=== PATIENT | female | born 2000 | race Two or more races ===

== ENCOUNTER 2022-11-30 20:23 | Emergency (ER) | payer OTHER ==
[2022-11-30 20:42] VITALS: BP 133/85
[2022-11-30] MEDS ORDERED: ACETAMINOPHEN 325 MG TABLET PO STA (20:46)
--- NOTE | 2022-11-30 20:48 | ED Physician Documentation ---
PD HPI ABD PAIN - Stated complaint Stated Complaint: FEMALE - Chief complaint Chief Complaint: Abd Pain - History obtained from History obtained from: Patient, Family () - Additional information Additional information: 19-year-old woman presents with positive test as well as negative test, both performed yesterday. also with left-sided cramping 3/10 pain radiating to the front intermittent over the past 2 days with associated nausea and increased urinary frequency. Last menstrual period 10/29/2022. denies Vaginal discharge, bleeding, dysuria, hematuria.No past surgical history. Review of Systems Constitutional: denies: Fever GI: reports: Abdominal Pain, Nausea. denies: Vomiting, Constipation, Diarrhea : reports: Frequency. denies: Dysuria PD PAST MEDICAL HISTORY - Allergies Allergies/Adverse Reactions: Allergies Allergy/AdvReac Type Severity Reaction Status Date / Time No Known Drug Allergies Allergy Verified 11/30/22 20:41 PD ED PE NORMAL - Vitals Vital signs reviewed: Yes - General General: Alert and oriented X 3, No acute distress, Well developed/nourished - HEENT HEENT: Atraumatic, PERRL, EOMI - Neck Neck: Supple, no meningeal sign - Cardiac Cardiac: RRR - Respiratory Respiratory: No respiratory distress, Clear bilaterally - Abdomen Abdomen: Non tender, Non distended - Back Back: No CVA TTP Results - Vitals Vitals: Vital Signs - 24 hr 11/30/22 20:35 Temperature 36.3 C L Heart Rate 77 Respiratory 15 Rate Blood Pressure 133/85 H O2 Saturation 100 Oxygen O2 Source Room air - Labs Labs: Laboratory Tests 11/30/22 11/30/22 20:30 20:30 Urine Color YELLOW Urine Clarity CLEAR Urine pH 7.0 Ur Specific [place] <=1.005 Urine Protein NEGATIVE Urine Glucose (UA) NEGATIVE Urine Ketones NEGATIVE Urine Occult Blood NEGATIVE Urine Nitrite NEGATIVE Urine Bilirubin NEGATIVE Urine Urobilinogen 0.2 (NORMAL) Ur Leukocyte Esterase TRACE H Urine RBC 0-5 Urine WBC 4-5 Ur Squamous Epith Cells MOD Squamous H Urine Bacteria Few Urine Culture Comments NOT INDICATED Urine HCG, Qual NEGATIVE PD Medical Decision Making - ED course ED course: 21-year-old woman presents with cramping pain and possible . Will obtain test as well as urinalysis to evaluate for UTI. Oral tylenol provided for 3/10 pain. Plan to follow-up results and reevaluate pain scale. Pain improved with Tylenol. test and urine test negative. Likely she is experiencing premenstrual cramping. Return precautions given. Plan to follow-up with [facility]. Departure - Departure Disposition: 01 Home, Self Care Clinical Impression: Abdominal pain Condition: Good Instructions: Abdominal Pain Comments: You were seen in the emergency department for cramping. Your test was negative and urine test showed that infection is unlikely. Please follow-up with your primary care provider and return to the emergency department if you have any new or worsening symptoms or other concerns.
[2022-11-30 21:00] LABS: BILIRUBIN,URINE NEGATIVE (NEGATIVE); GLUCOSE, URINE (UA) NEGATIVE (NEGATIVE); KETONES,URINE (UA) NEGATIVE (NEGATIVE); LEUKOCYTE ESTERASE, URINE TRACE (NEGATIVE); NITRITE,URINE NEGATIVE (NEGATIVE); OCCULT BLOOD,URINE NEGATIVE (NEGATIVE); PROTEIN,URINE NEGATIVE (NEGATIVE); UROBILINOGEN,URINE 0.2 (NORMAL) E.U./dL (NORMAL)
[2022-11-30 21:02] LABS: CLARITY,URINE CLEAR (CLEAR); HCG UR QUAL NEGATIVE
[2022-11-30 21:08] LABS: BACTERIA,URINE Few /HPF (None Seen); RBC,URINE 0-5 /HPF (0-5); SQUAMOUS EPITHELIAL CELL,UR MOD Squamous (<= Few)
== END 2022-11-30 21:17 | disposition home or self-care (01) ==
LOC: ED 20:23
DX: R10.9 Unspecified abdominal pain (principal)
CPT/HCPCS: 81001; 81025; 99283; A9270; 87086